=== PATIENT | male | born 1990 | race Caucasian/White ===

== ENCOUNTER 2016-11-14 16:16 | Emergency (ER) | payer MEDICAID ==
[~2016-11-14] VITALS: Wt 59.5 kg
[2016-11-14] MEDS ORDERED: IBUP800T25 PO (18:20)
[2016-11-14] MEDS ORDERED: HYDR-902 PO (18:20)
[2016-11-14] MEDS ORDERED: METH750T93 PO (18:20)
--- NOTE | 2016-11-14 18:24 | ERD ---
ER Documentation Chief Complaint Date/Time DATE: 11/14/16 TIME: 18:21 Chief Complaint NECK PAIN RAD SHOULDERS HPI This is a 26-year-old male complains of 2 days of pain in bilateral superior cervical spine with radiation into both traps. He states that the pain is described as sharp and worse with movement better with rest. No trauma. No numbness or weakness in the upper extremities or legs. No headache. Says if he remains still he does not have any pain. ROS All systems reviewed and are negative except as per history of present illness. Medications Home Meds Active Scripts Hydrocodone/Acetaminophen ([place] 10-325 Tablet) 1 Each Tablet, 1 TAB PO Q6H Y for PAIN, #20 TAB Prov:RAÚLOSZBIGNIEWSTOLOS A. DO 11/14/16 Methocarbamol* (Robaxin*) 750 Mg Tablet, 750 MG PO TID, #20 TAB Prov:LEKKOSAPOSTOLOS A. DO 11/14/16 Ibuprofen* (Motrin*) 800 Mg Tab, 800 MG PO Q6H Y for PAIN AND OR ELEVATED TEMP, #30 TAB Prov:LEKKOSAPOSTOLOS A. DO 11/14/16 Allergies Allergies: Coded Allergies: No Known Allergy (Unverified , 11/14/16) PMhx/Soc Medical and Surgical Hx: pt denies Medical Hx, pt denies Surgical Hx History of Surgery: No Anesthesia Reaction: No Hx Neurological Disorder: No Hx Respiratory Disorders: No Hx Cardiac Disorders: No Hx Psychiatric Problems: No Hx Miscellaneous Medical Probl: No Hx Alcohol Use: No Hx Substance Use: No Hx Tobacco Use: No Smoking Status: Never smoker FmHx Family History: No coronary disease Physical Exam Vitals Vital Signs Date Time Temp Pulse Resp B/P Pulse Ox O2 Delivery O2 Flow Rate FiO2 11/14/16 16:17 98.7 90 18 132/78 99 Physical Exam Const: Well-developed, well-nourished Head: Atraumatic, normocephalic Eyes: Normal Conjunctiva, PERRLA, EOMI, normal sclera, no nystagmus ENT: Normal External Ears, Nose and Mouth, moist mucus membranes. Neck: Full range of motion. No meningismus, no lymphadenopathy, bilateral paracervical spine tenderness no pain midline pain in both trapezius muscles with range of motion. Resp: Clear to auscultation bilaterally, no wheezing, rhonchi, rales Cardio: Regular rate and rhythm, no murmurs, S1 S2 present Abd: Soft, non tender x 4, non distended. Normal bowel sounds, no guarding or rebound, no pulsitile abdominal masses or bruits Skin: No petechiae or rashes, no ecchymosis , no maculopapular rash Back: No midline or flank tenderness Ext: No cyanosis, or edema, FROM x 4, normal inspection, neurovascularly intact x 4 Neur: Awake and alert, STR 5/5 x 4, sensation intact x 4, no focal findings, cerebellum intact Psych: Normal Mood and Affect Procedures/MDM His pain is musculoskeletal in nature we will discharge on Robaxin with Departure Diagnosis: Primary Impression: Muscle spasm Additional Impression: Neck pain Condition: Stable Patient Instructions: Muscle Spasm, Neck Pain, No Trauma STEWART JOHNSON DO Nov 14, 2016 18:24
[2016-11-14 18:57] VITALS: BP 128/72; PULSE 66; RESP 18; TEMP 98.7
== END 2016-11-14 18:57 | disposition home or self-care (01) ==
LOC: FTE 16:16
DX: M62.838 Other muscle spasm (principal)
CPT/HCPCS: 99284

== ENCOUNTER 2017-04-20 11:15 | Emergency (ER) | END 2017-04-20 13:20 | disposition home or self-care (01) ==

== ENCOUNTER 2017-04-22 10:08 | Emergency (ER) | END 2017-04-22 12:03 | disposition home or self-care (01) ==